=== PATIENT | female | born 1955 | race Caucasian/White ===

== ENCOUNTER 2018-07-21 12:01 | Day surgery (SDC) | payer OTHER ==
[~2018-07-21 12:01] MED LIST: ETOMIDATE 20 MG INJ
[2018-07-21] MEDS ORDERED: HYDROCODONE/APAP (5/325) TAB PO ×2 (14:00)
[2018-07-21] MEDS ORDERED: SOD CHLORIDE 0.9% 1,000 ML IV (16:00)
[2018-07-21] MEDS ORDERED: CEFAZOLIN 2 GM/50 ML (PMX) 50 ML (FOR WT < 120 KG) IVPB (16:00)
[2018-07-21] MEDS: LIDOCAINE 1% (MDV) 20 ML INJ (18:13)
[2018-07-21] MEDS: TRIAMCINOLONE ACET 40 MG/ML INJ (18:13)
[2018-07-21] MEDS: ONDANSETRON 4 MG INJ IV (19:35)
[2018-07-21] MEDS: LACTATED RINGER'S 1,000 ML IV (19:39)
[2018-07-21] MEDS ORDERED: ONDANSETRON 4 MG INJ (22:01)
[2018-07-21] MEDS ORDERED: ETOMIDATE 20 MG INJ (22:01)
[2018-07-21] MEDS ORDERED: ACETAMINOPHEN 1000MG/100ML IV 100 ML (22:01)
[2018-07-21] MEDS ORDERED: KETOROLAC 30 MG INJ (22:01)
[2018-07-21] MEDS ORDERED: CEFAZOLIN 1 GM INJ (22:01)
[2018-07-21] MEDS ORDERED: LIDOCAINE 1% (MDV) 20 ML INJ (22:01)
[2018-07-21] MEDS ORDERED: FAMOTIDINE 20 MG INJ (22:01)
[2018-07-21] MEDS ORDERED: KETAMINE (100 MG/ML) 5 ML VIAL (22:01)
== END 2018-07-21 20:45 | disposition home or self-care (01) ==
LOC: SDS 12:01
DX: M23.222 Derangement of posterior horn of medial meniscus due to old tear or injury, left knee (principal); M94.262 Chondromalacia, left knee
CPT/HCPCS: 29881; 93005